=== PATIENT | male | born 1990 | race Caucasian/White ===

== ENCOUNTER 2016-04-25 23:32 | Emergency (ER) | payer OTHER ==
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
[2016-04-26 05:09] VITALS: BP 135/87
--- NOTE | 2016-04-26 07:51 | RAD ---
HISTORY: Right fourth finger injury COMPARISONS: None relevant VIEWS: 3, Frontal, lateral, and oblique views of the fourth digit of the right hand FINDINGS: BONE DENSITY: Normal. BONES: There is no displaced fracture. JOINTS: There is no arthropathy. ALIGNMENT: There is posterior dislocation of the middle phalanx of the fourth digit with respect to the proximal phalanx at the PIP joint SOFT TISSUES: Unremarkable. OTHER FINDINGS: None. IMPRESSION: RIGHT FOURTH PIP JOINT DISLOCATION
--- NOTE | 2016-04-26 08:02 | RAD ---
INDICATION: Right fourth digit dislocation with subsequent reduction COMPARISON: April 26, 2016 TECHNIQUE: AP, lateral, and oblique views were obtained. FINDINGS: There is interval reduction of the PIP joint of the fourth digit. No underlying fracture is appreciated. There is soft tissue swelling about the PIP joint. IMPRESSION: INTERVAL REDUCTION. NO UNDERLYING FRACTURE IS IDENTIFIED
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
== END 2016-04-26 05:07 | disposition home or self-care (01) ==
LOC: ED 23:32
DX: S63.274A Dislocation of unspecified interphalangeal joint of right ring finger, initial encounter (principal); X58.XXXA Exposure to other specified factors, initial encounter; Y93.67 Activity, basketball; F17.210 Nicotine dependence, cigarettes, uncomplicated; Y92.9 Unspecified place or not applicable
CPT/HCPCS: 26770; 73140; 99282

== ENCOUNTER 2016-11-26 22:06 | Emergency (ER) | payer OTHER ==
[2016-11-26] MEDS ORDERED: Ketorolac INJ* 60 MG/2 ML VIAL IM ONE ×2 (23:12→23:33)
--- NOTE | 2016-11-26 23:24 | ED ---
Lower Extremity - HPI Summary HPI Summary: 26 male presents to ED incarcerated with complaints of left lower leg/ankle pain that began after injuring it while playing football today just [employer]. Patient states he felt a pop, states he went one way and foot/leg went the other. Admits to obvious swelling and bruising. Denies any knee or hip pain. No anticoagulant use or medications [employer]. Denies PMHx. No other complaints or injuries at this time. Unable to bear weight. Has sprained left ankle in the past. - History of Current Complaint Chief Complaint: EDExtremityLower Stated Complaint: LT ANKLE INJURY Time Seen by Provider: 11/26/16 22:32 Hx Obtained From: Patient Mechanism Of Injury: Twisted Onset of Pain: Immediate, Post Accident Onset/Duration: Worse Since Severity Initially: Mild Severity Currently: Mild Pain Intensity: 4 Pain Scale Used: 0-10 Numeric Timing: Constant Location: Is Discrete @ - left ankle, lower leg Character Of Pain: Sharp, Aching Associated Signs And Symptoms: Positive: Swelling, Bruising Aggravating Factor(s): Standing, Ambulation, Movement, Weight Bearing Alleviating Factor(s): Rest Able to Bear Weight: No - due to injury - Allergies/Home Medications Allergies/Adverse Reactions: Allergies Allergy/AdvReac Type Severity Reaction Status Date / Time No Known Allergies Allergy Verified 11/26/16 22:12 PMH/Surg Hx/FS Hx/Imm Hx Endocrine/Hematology History: Denies: Hx Diabetes Cardiovascular History: Denies: Hx Hypertension Respiratory History: Denies: Hx Asthma - Surgical History Surgery Procedure, Year, and Place: n/a - Immunization History Immunizations Up to Date: Yes Infectious Disease History: No Infectious Disease History: Denies: Traveled Outside the [place] in Last 30 Days - Family History Known Family History: Negative: Cardiac Disease, Diabetes - Social History Alcohol Use: Occasionally Substance Use Type: Reports: None Smoking Status (MU): Former Smoker Review of Systems Constitutional: Negative Cardiovascular: Negative Respiratory: Negative Positive: Arthralgia, Myalgia, Decreased ROM, Edema - left lower extremity/ ankle Skin: Negative Neurological: Negative All Other Systems Reviewed And Are Negative: Yes Physical Exam Triage Information Reviewed: Yes Vital Signs On Initial Exam: Initial Vitals Temp Pulse Resp BP Pulse Ox 97.8 F 72 16 127/85 100 11/26/16 22:08 11/26/16 22:08 11/26/16 22:08 11/26/16 22:08 11/26/16 22:08 Vital Signs Reviewed: Yes Appearance: Positive: Well-Appearing, No Pain Distress, Well-Nourished Skin: Positive: Warm, Skin Color Reflects Adequate Perfusion, Dry, Other - edema and ecchymosis of left LE/ankle. Negative: Cold, Cyanosis @, Pale, Erythema @, Cold Injury Head/Face: Positive: Normal Head/Face Inspection Eyes: Positive: Conjunctiva Clear ENT: Positive: Hearing grossly normal Neck: Positive: Supple, Nontender, No Lymphadenopathy Respiratory/Lung Sounds: Positive: Clear to Auscultation, Breath Sounds Present. Negative: Decreased Breath Sounds, Rales, Rhonchi, Wheezes Cardiovascular: Positive: Normal, RRR, Pulses are Symmetrical in both Upper and Lower Extremities - 2+pedal b/l. Negative: Murmur, Rub Abdomen Description: Positive: Nontender Bowel Sounds: Positive: Present Musculoskeletal: Positive: Limited @ - left ankle/ distal lower leg, Abnormal @ , Pain @ - left ankle/ distal lower extremity, Edema Left - ankle, distal tib/ fib Neurological: Positive: Normal, Sensory/Motor Intact, Alert, Oriented to Person Place, Time, CN Intact II-III, Reflexes Intact, NV Bundle Intact Distally, Unable to Assess Gait Psychiatric: Positive: Normal Procedures - Splinting Location: left distal lower extremity Hand-Made Type: plaster Splint: sugar-tong Pre-Proc Neuro Vasc Exam: normal Post-Proc Neuro Vasc Exam: normal, unchanged from pre-exam Diagnostics - Vital Signs Vital Signs Temp Pulse Resp BP Pulse Ox 11/26/16 22:08 97.8 F 72 16 127/85 100 - Laboratory Lab Statement: Any lab studies that have been ordered have been reviewed, and results considered in the medical decision making process. - Radiology left lower leg Xray Interpretation: Positive (See Comments) - left distal fibular spiral fracture Radiology Interpretation Completed By: ED Physician - myself and Dr Barnhart left ankle Xray Interpretation: Positive (See Comments) - left distal fibular spiral fracture, possible talus fx Radiology Interpretation Completed By: ED Physician - myself and Dr Barnhart Lower Extremity Course/Dx - Course Course Of Treatment: given pain management, xray of lower left leg and ankle obtainded. distal fibula spiral fracture of left leg noted, possible posterior talus fracture also. Dr Lozano was consulted at 11:20pm who stated splint and have follow up in office. leg was splinted without complication, patient tolerated procedure well. Aware of worsening signs and symptoms to watch out for. Follow up Ortho. RICE and NSAIDs. - Diagnoses Differential Diagnosis/HQI/PQRI: Positive: Contusion, Dislocation, Fracture ( Closed), Sprain, Strain Provider Diagnoses: Closed left fibular fracture - Physician Notifications Discussed Care Of Patient With: Dr Lozano Time Discussed With Above Provider: 23:20 Instructed by Provider To: Have Pt Call For Appt. - splint and follow up appointment Discharge - Discharge Plan Condition: Stable Disposition: HOME Patient Education Materials: Leg Fracture (ED), Ankle Fracture (ED) Referrals: Po Lozano MD [Medical Doctor] - Vielka Elias DO [Primary Care Provider] - Additional Instructions: Take prescribed medication only as needed for breakthrough pain. Supplement with ibuprofen beginning tomorrow after 4pm, as you received a dose of toradol while in ED. Take with food. Rest, elevate and ice. Do not get splint wet. Do not bear weight, use crutches. Call and make an appointment with orthopedics tomorrow for follow up. Any worsening symptoms or concern that splint is too tight, causing complications please seek medical attention promptly. Follow up with [facility].
[2016-11-27] MEDS ORDERED: HYDROcodone/ACETAMIN 5-325 MG* 1 TAB PO ONE (00:07)
[2016-11-27 00:29] VITALS: BP 121/83
--- NOTE | 2016-11-27 07:49 | RAD ---
INDICATION: Left ankle injury COMPARISON: None. TECHNIQUE: 3 views of the left ankle 3 views of the left lower leg were obtained. FINDINGS: There is a comminuted obliquely oriented fracture at the distal left fibular metaphysis. On the lateral view of the ankle, there is a triangular bone measuring 1.5 cm in cephalocaudal projection immediately posterior to the talocalcaneal joint that appears to be well corticated. The remaining visualized bones are intact and appropriately aligned. There is no asymmetric widening of the ankle more T's. There is no definite fracture of the proximal tibia and fibula. IMPRESSION: COMMINUTED DISTAL FIBULAR FRACTURE DESCRIBED ABOVE. A TRIANGULAR BONY FOCUS IMMEDIATELY POSTERIOR TO THE TALOCALCANEAL JOINT APPEARS TO BE WELL-CORTICATED AND IS MORE LIKELY A BONY OSSICLE/OS TRIGONUM OPPOSED TO AN ACUTE TRAUMATIC FRACTURE.
== END 2016-11-27 00:29 | disposition home or self-care (01) ==
LOC: ED 22:06
DX: S82.402A Unspecified fracture of shaft of left fibula, initial encounter for closed fracture (principal); X58.XXXA Exposure to other specified factors, initial encounter; Y93.61 Activity, american tackle football; Y92.9 Unspecified place or not applicable
CPT/HCPCS: 96372; 99283; J1885

== ENCOUNTER 2017-12-18 23:56 | Emergency (ER) | payer OTHER ==
[2017-12-19] MEDS ORDERED: Lidocaine 2% EPI 1:200000 MPF*10-20 ML VIAL INJ ONE (00:04)
[2017-12-19] MEDS ORDERED: Tetan/Diph/Pertus SYR(Tdap)* 0.5 ML SYR(BOOSTRIX) use SYR IM ONE (00:05)
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
[2017-12-19] MEDS ORDERED: Cephalexin CAP* 500 MG PO ONE (01:11)
[2017-12-19 01:22] VITALS: BP 132/82
== END 2017-12-19 01:20 | disposition home or self-care (01) ==
LOC: ED 23:56
DX: S01.81XA Laceration without foreign body of other part of head, initial encounter (principal); Y09 Assault by unspecified means; Y92.149 Unspecified place in prison as the place of occurrence of the external cause; Z87.891 Personal history of nicotine dependence
CPT/HCPCS: 12015; 90471; 90715; 99282; A9270-GY